=== PATIENT | male | born 1995 | race Caucasian/White ===

== ENCOUNTER 2021-04-15 07:18 | Outpatient (RCR) | payer OTHER, SELFPAY ==
[2021-04-15] MEDS: FAMOTIDINE 20 MG TABLET PO (10:03)
[2021-04-15] MEDS: ACETAMINOPHEN 325 MG TABLET 650 MG PO (10:03)
[2021-04-15] MEDS: diphenhydrAMINE HCl CAP 25 MG CAPSULE PO (10:03)
[2021-04-15 10:04] VITALS: BP 134/73; PULSE 72; RESP 20; TEMP 36.8; O2SAT 99
[2021-04-15 11:32] VITALS: BP 99/54; PULSE 62; RESP 20; O2SAT 99
[2021-04-15 11:42] VITALS: BP 142/74; PULSE 51; RESP 14; O2SAT 100
--- NOTE | 2021-04-15 11:49 | PC.NURSE ---
Patient had dizziness, patient was placed in a chair and then patient was lowered to the fall. Patient did not pass out completely but was close. Patient vital signs are stable. Patient's called to pick him up.
[2021-04-15 11:55] VITALS: BP 118/58; PULSE 58; RESP 18; O2SAT 100
--- NOTE | 2021-04-16 10:59 | PC.NURSE ---
Spoke to patient and he states he is feeling much better after his monoclonal infusion.
== END 2021-04-15 17:00 ==
LOC: AMCINF 07:18
PROVIDERS: PCP Physician Assistant Medical; Visit Provider Internal Medicine Hematology & Oncology
DX: U07.1 COVID-19 (principal)
CPT/HCPCS: A9270; M0245; Q0245

== ENCOUNTER 2023-07-17 00:38 | Emergency (ER) | payer OTHER, SELFPAY ==
[2023-07-17] VITALS (10 sets, daily range): BP systolic 104–144; BP diastolic 56–83; PULSE 62–96; RESP 14–20; TEMP 36.4; O2SAT 98–100
--- NOTE | 2023-07-17 00:46 | ECG_ITS ---
Measurements Intervals [place] Rate: 84 P: 72 ME: 177 QRS: 96 QRSD: 119 T: 55 QT: 374 QTc: 444 Interpretive Statements SINUS RHYTHM WITH SINUS ARRHYTHMIA SUSPECT RIGHT TO LEFT ARM LEAD TRANSPOSITION OTHERWISE UNREMARKABLE ECG NO PREVIOUS ECG AVAILABLE FOR COMPARISON Electronically Signed On 07-17-2023 7:46:53 CDT by Virgil Sanford M.D.
[2023-07-17 01:01] LABS: Basophils Absolute Auto 0.1 K/mm3 (0.0-0.1); Basophils Percent Auto 0.6 % (0.2-1.2); Eosinophils Absolute Auto 0.7 K/mm3 (0-0.3); Eosinophils Percent Auto 6.6 % (0-4.4); Hematocrit 47.4 % (42.0-52.0); Hemoglobin 16.3 g/dL (14.0-18.0); Immature Granulocyte Absolute 0.03 K/mm3 (0.00-0.031); Immature Granulocyte Percent A 0.3 % (0-0.5); Lymphocytes Absolute Auto 3.61 K/mm3 (0.9-3.2); Lymphocytes Percent Auto 36.8 % (18.3-44.2); Mean Corpuscular HGB Conc 34.4 g/dl (32-36); Mean Corpuscular Hemoglobin 30.1 pg (26-34); Mean Corpuscular Volume 87.5 fl (80-100); Mean Platelet Volume 8.8 fl (7.4-10.4); Monocytes Absolute Auto 0.8 K/mm3 (0.1-0.6); Monocytes Percent Auto 8.3 % (2.6-8.5); Neutrophils Absolute Auto 4.6 K/mm3 (1.3-6.7); Neutrophils Percent Auto 47.4 % (45.5-73.1); Platelet Count Result 276 k/mm3 (150-375); Red Blood Count 5.42 M/mm3 (4.6-6.20); White Blood Count 9.8 K/mm3 (4.5-10.0)
[2023-07-17] MEDS: SODIUM CHLORIDE 0.9% IV 1,000 ML 999 ML IV CONT (01:28)
[2023-07-17 01:59] LABS: Influenza A QL RT-PCR Negative (Negative); Influenza B QL RT-PCR Negative (Negative); RSV RNA, RT-PCR Negative (Negative); SARS-CoV-2 RNA PCR Negative (Negative)
--- NOTE | 2023-07-17 02:30 | ED.DIZZY ---
HPI - Dizziness General Chief Complaint: Dizziness Stated Complaint: dizziness Time Seen by Provider: 07/17/23 02:27 History of Present Illness HPI Narrative: Patient is a 27-year-old male who presents to the emergency department this evening complaining of dizziness. Patient states that earlier this morning when he was at work he had an episode where he felt a little bit dizzy, almost as if he was drunk. Patient states that the episode was mild and he continued and finished his shift. This evening when he was going to dinner with he had another episode, however, this 1 felt more severe than the initial episode earlier in the day and made him nauseous. Patient denies any vomiting episodes and denies any similar symptoms in the past. He denies any lightheadedness or near syncopal episodes. Patient admits that he has been having some upper respiratory symptoms for the past few days but denies any fevers or chills or any exposure to sick contacts. He is currently denying any chest pain or shortness of breath, any abdominal pain, any urinary symptoms. He also denies any headaches, any current dizziness, any blurry visions, focal weakness, numbness and tingling. There are no other modifying, alleviating, or precipitating factors at this time. Related Data Allergies Allergy/AdvReac Type Severity Reaction Status Date / Time No Known Allergies Allergy Verified 12/12/22 14:39 Review of Systems Review of Systems: All systems are reviewed and are negative unless stated otherwise in the HPI. [facility] Past Medical History Medical History ADD (attention deficit disorder) Benign hematuria Social History Social History Smoking status: Current some day smoker Tobacco type: e-cigarettes/vaping Second hand tobacco smoke exposure: No Alcohol intake: current Drinks per week: 25 Alcohol use details: beer Substance use: never Substance use type: does not use Lack of Transportation: No Lack of Food: Never True Current Housing: I Have Housing Concerned About Future Housing: No Difficulty Paying Gas/Electric Bills: No Difficulty Paying for Meds: No Currently Unemployed: No Difficulty w/ Childcare or Family Care: No Living arrangements: with family Occupation/Education: occupation Gender identity (if verbalized by the patient): Male Sexual Orientation (if Verbalized by the Patient): Straight or Heterosexual Exam Narrative: General: Alert, awake, afebrile, in no acute distress. HEENT: PERRL, no rhinorrhea, no post nasal drip, oropharynx clear, erythematous and bulging bilateral tympanic membranes worse on the right. Neck: Trachea midline, no JVD, no lymphadenopathy. Cardiovascular: Regular rate and rhythm, no murmurs, rubs or gallops, no peripheral edema. Respiratory: Clear to auscultation bilaterally, no tachypnea, no wheezing, no rhonchi, no rubs, no respiratory distress. Abdomen: Soft, nontender, nondistended, no rebound, no guarding, no peritoneal signs. Musculoskeletal: No joint swelling or deformity, normal muscle tone. Skin: No rashes or petechia, no signs of infection. Psychiatric: Alert and oriented, normal behavior and judgment for situation. Neurological: Alert and oriented to person, place, and time. Follows all commands. No focal deficits, 5/5 motor strength in the bilateral upper and lower extremity, sensation intact in the bilateral upper and lower extremity, cranial nerves 2-12 grossly intact, speech is clear and fluent. Course Vital Signs Vital signs: Vital Signs Temperature 97.5 F L 07/17/23 00:46 Pulse Rate 96 07/17/23 00:46 Respiratory Rate 15 07/17/23 00:46 Blood Pressure 144/79 H 07/17/23 00:46 Pulse Oximetry 100 07/17/23 00:46 Oxygen Delivery Room Air 07/17/23 00:46 Temperature 97.5 F L 07/17/23 00:46 Pulse Rate 63 07/17/23 01:54 Respi
[2023-07-17 02:40] LABS: Alanine Aminotransferase 26 U/L (6-50); Albumin Level 4.6 g/dL (3.5-5.1); Alkaline Phosphatase 63 U/L (38-126); Anion Gap 7 mmol/L (4-12); Aspartate Amino Transferase 35 U/L (17-59); Bilirubin,Total 0.7 mg/dL (0.2-1.3); Blood Urea Nitrogen 15 mg/dL (9-20); Calcium 9.3 mg/dL (8.4-10.2); Carbon Dioxide 27 mmol/L (22-30); Chloride 102 mmol/L (98-107); Estimated CRCL calculation 119 ml/min; Estimated Glomerular Filt Rate > 60; Glucose 95 mg/dL (65-110); Potassium 3.4 mmol/L (3.4-5.0); Sodium 136 mmol/L (137-145)
== END 2023-07-17 03:26 | disposition home or self-care (01) ==
PROVIDERS: Emergency Provider Emergency Medicine; PCP Physician Assistant Medical
DX: H66.91 Otitis media, unspecified, right ear (principal); R42 Dizziness and giddiness; F98.8 Other specified behavioral and emotional disorders with onset usually occurring in childhood and adolescence; F17.290 Nicotine dependence, other tobacco product, uncomplicated; Z20.822 Contact with and (suspected) exposure to COVID-19
CPT/HCPCS: 36415; 80053; 85025; 87637; 93005; 96360; 96361; 99284; J7030